=== PATIENT | male | born 1965 | race Caucasian/White ===

== ENCOUNTER → 2018-08-09 | Outpatient (CLI) | payer OTHER ==
[~2018-08-09] MED LIST: HYDR-3307 PO
[2018-08-09 11:16] LABS: BASOPHILS # (AUTO) 0.02 x10^3/uL (0-0.1); BASOPHILS % (AUTO) 0 % (0-1); EOSINOPHILS # (AUTO) 0.68 x10^3/uL (0-0.4); EOSINOPHILS % (AUTO) 11 % (1-7); LYMPHOCYTES # (AUTO) 1.43 x10^3/uL (1-3.4); LYMPHOCYTES % (AUTO) 23 % (22-44); MD NO; MEAN CORPUSCULAR HEMOGLOBIN 31.4 pg (27.5-34.5); MEAN CORPUSCULAR HGB CONC 33.6 g/dL (33.2-36.2); MEAN CORPUSCULAR VOLUME 93.3 fL (81-97); MEAN PLATELET VOLUME 8.6 fL (7.4-10.4); MONOCYTES # (AUTO) 0.45 x10^3/uL (0.2-0.8); MONOCYTES % (AUTO) 7 % (2-9); NEUTROPHILS # (AUTO) 3.65 x10^3/uL (1.8-6.8); NEUTROPHILS % (AUTO) 59 % (42-75); PLATELET COUNT 179 x10^3/uL (130-400); RED BLOOD COUNT 5.44 x10^6/uL (4.38-5.82); RED CELL DISTRIBUTION WIDTH 12.8 % (9.4-14.8)
[2018-08-09 11:28] LABS: INTERNATIONAL NORMALIZED RATIO 0.96 (0.93-1.1); PROTHROMBIN TIME 10.2 Seconds (9.6-11.5)
[2018-08-09 11:29] LABS: CALCIUM 9.9 mg/dL (8.5-10.1); CHLORIDE 108 mmol/L (98-107)
[2018-08-09 11:31] LABS: CREATININE 1.26 mg/dL (0.7-1.3)
[2018-08-09 11:46] LABS: ANION GAP 3 mmol/L (5-15)
== END | disposition home or self-care (01) ==
LOC: STAR 10:09
PROVIDERS: ATTEND Neurological Surgery
DX: Z01.818 Encounter for other preprocedural examination (principal); M54.12 Radiculopathy, cervical region
CPT/HCPCS: 36415; 71046; 80048; 85025; 85610; 85730; 93005

== ENCOUNTER 2019-07-19 08:58 | Inpatient (IN) | payer OTHER ==
[~2019-07-19] VITALS: Ht 182.9 cm; Wt 97.3 kg
[~2019-07-19 08:58] MED LIST changes: +DOCU-131 PO; +GABA300C10 PO; +HYDR-3245 PO; -HYDR-3307 PO; +HYDR-36 PO
[2019-07-19 09:40] VITALS: BP 112/74
[2019-07-19] MEDS ORDERED: LACTATED RINGERS 1,000 ML IV SCH (09:42)
[2019-07-19] MEDS ORDERED: CEFAZOLIN 1,000 MG ONE ×3 (11:36→12:52)
[2019-07-19] MEDS ORDERED: PROPOFOL 10 MG/ML, 20ML ONE ×2 (11:36→12:52)
[2019-07-19] MEDS ORDERED: MIDAZOLAM 1 MG/ML, 2ML ONE (11:36)
[2019-07-19] MEDS ORDERED: FENTANYL PF 250 MCG/5ML ONE (11:36)
[2019-07-19] MEDS ORDERED: ONDANSETRON 2MG/ML, 2ML ONE (11:36)
[2019-07-19] MEDS ORDERED: DEXAMETHASONE 4 MG/ML, 1ML ONE ×3 (11:36→12:52)
[2019-07-19] MEDS ORDERED: ROCURONIUM 10MG/ML,5ML ONE ×2 (11:37→12:52)
[2019-07-19] MEDS ORDERED: LIDOCAINE-MPF 2% ,5ML ONE ×2 (11:37)
[2019-07-19] MEDS ORDERED: KETAMINE 10 MG/ML, 20ML ONE (12:46)
[2019-07-19] MEDS ORDERED: NEOSTIGMINE 1 MG/ML, 10ML ONE ×2 (12:52→13:58)
[2019-07-19] MEDS ORDERED: MIDAZOLAM 1 MG/ML, 5ML ONE (12:52)
[2019-07-19] MEDS ORDERED: EPHEDRINE 50 MG/ML, 1ML ONE (12:52)
[2019-07-19] MEDS ORDERED: GLYCOPYRROLATE 0.2MG/1ML, 5ML ONE ×2 (12:52→13:58)
[2019-07-19] MEDS ORDERED: LIDOCAINE 2% 100MG/5ML SYRINGE ONE (12:52)
[2019-07-19] MEDS ORDERED: hydrALAzine 20 MG/ML, 1ML IV PRN (13:00)
[2019-07-19] MEDS ORDERED: MEPERIDINE/PF 25MG/ML,1ML IVPush PRN (13:00)
[2019-07-19] MEDS ORDERED: ONDANSETRON 2MG/ML, 2ML IV PRN ×2 (13:00→16:00)
[2019-07-19] MEDS ORDERED: LABETALOL 5MG/ML, 20ML IV PRN (13:00)
[2019-07-19] MEDS ORDERED: LORazepam 2 MG/ML, 1ML IVPush PRN (13:00)
[2019-07-19] MEDS ORDERED: OXYcodone 5 MG/5 ML ORAL.SOL UDC PO PRN (13:00)
[2019-07-19] MEDS ORDERED: THROMBIN (RECOMBINANT) 5,000 UNIT VIAL TP ONE (13:05)
[2019-07-19] MEDS ORDERED: BACITRACIN 50,000 UNIT ONE (13:05)
[2019-07-19] MEDS ORDERED: EPINEPHRINE 1 MG/ML, 1ML ONE (13:05)
[2019-07-19] MEDS ORDERED: BUPIVACAINE/PF 0.5% ONE (13:05)
[2019-07-19] MEDS ORDERED: METHOCARBAMOL 1,000 MG in DEXTROSE 5% 100 ML IV STA (14:29)
[2019-07-19] MEDS ORDERED: FENTANYL PF 100 MCG/2ML ONE (14:31)
[2019-07-19] MEDS ORDERED: HYDROmorphone 1 MG/ML, 1ML INJ ONE (14:31)
[2019-07-19] MEDS: FENTANYL PF 100 MCG/2ML IV PRN ×2 (14:33→14:43)
[2019-07-19] MEDS: HYDROmorphone 1 MG/ML, 1ML INJ IVPush PRN ×2 (14:38→14:51)
[2019-07-19] MEDS ORDERED: PROMETHAZINE 25 MG/ML, 1ML IM PRN (16:00)
[2019-07-19] MEDS ORDERED: DIPHENHYDRAMINE 25 MG CAPSULE PO PRN (16:00)
[2019-07-19] MEDS ORDERED: DIPHENHYDRAMINE 50 MG/ML, 1ML IM PRN (16:00)
[2019-07-19] MEDS ORDERED: BISACODYL 10 MG SUPP PR PRN (16:00)
[2019-07-19] MEDS ORDERED: MAGNESIUM HYDROXIDE 8%, 30ML UDC PO PRN (16:00)
[2019-07-19] MEDS ORDERED: METHOCARBAMOL 750 MG TABLET PO PRN (16:00)
[2019-07-19] MEDS ORDERED: HYDROcodone/APAP 5/325 TABLET PO PRN (16:00)
[2019-07-19] MEDS ORDERED: HYDROmorphone 2 MG/ML, 1ML IM PRN (16:00)
[2019-07-19] MEDS: OXYcodone/APAP 10/325MG TABLET PO PRN (16:41)
[2019-07-19] MEDS ORDERED: DIAZEPAM 5 MG TABLET PO PRN (18:00)
[2019-07-19] MEDS: NS + 20MEQ KCL 1,000 ML IV SCH (18:18)
[2019-07-19 19:31] VITALS: BP 119/80
[2019-07-19] MEDS: CEFAZOLIN PMX 1GM/50ML 50 ML IVPB SCH (20:41)
[2019-07-20] MEDS: OXYcodone/APAP 10/325MG TABLET PO PRN ×3 (00:36→08:33)
[2019-07-20 00:37] VITALS: BP 107/67
[2019-07-20 04:11] VITALS: BP 107/66
[2019-07-20] MEDS: NS + 20MEQ KCL 1,000 ML IV SCH (05:20)
[2019-07-20] MEDS: CEFAZOLIN PMX 1GM/50ML 50 ML IVPB SCH (05:45)
[2019-07-20 07:23] VITALS: BP 115/71
[2019-07-20] MEDS ORDERED: OXYC-432 PO (08:00)
[2019-07-20] MEDS ORDERED: METHOCARBAMOL 750 MG TABLET PO SCH (08:00)
[2019-07-20] MEDS ORDERED: METH750T2 PO (08:00)
[2019-07-20] MEDS ORDERED: MORP-29 PO (08:00)
[2019-07-20] MEDS ORDERED: SENNA/DOCUSATE TABLET PO SCH (09:00)
== END 2019-07-20 09:25 | disposition home or self-care (01) | DRG 517 ==
LOC: OUT 08:58 → 4NE 15:30 → OUT 16:20 → DCLOUNGE 07-20 09:08
PROVIDERS: ADMIT Neurological Surgery; ATTEND Neurological Surgery
PROC: 01NB0ZZ Release Lumbar Nerve, Open Approach (ICD-10-PCS; principal; 2019-07-19 12:30)
DX: M48.061 Spinal stenosis, lumbar region without neurogenic claudication (principal); M54.16 Radiculopathy, lumbar region; F17.200 Nicotine dependence, unspecified, uncomplicated; Z88.8 Allergy status to other drugs, medicaments and biological substances
CPT/HCPCS: 72100; J3490; S0020; G0378; J0171; J0690; J1100; J1170; J2250; J2270; J2405; J2704; J2710; J3010; J3480; J2800; J7120